=== PATIENT | male | born 1940 | race Caucasian/White ===

== ENCOUNTER 2018-05-07 12:47 | Inpatient (IN) | payer MEDICARE ==
[~2018-05-07] VITALS: Ht 175.3 cm; Wt 92.5 kg
[2018-05-07 13:34] LABS: BASOPHILS # (AUTO) 0.05 x10^3/uL (0-0.1); BASOPHILS % (AUTO) 1 % (0-1); EOSINOPHILS # (AUTO) 0.13 x10^3/uL (0-0.4); EOSINOPHILS % (AUTO) 2 % (1-7); LYMPHOCYTES # (AUTO) 2.17 x10^3/uL (1-3.4); LYMPHOCYTES % (AUTO) 26 % (22-44); MD NO; MEAN CORPUSCULAR HGB CONC 34.4 g/dL (33.2-36.2); MEAN CORPUSCULAR VOLUME 96.1 fL (81-97); MEAN PLATELET VOLUME 8.8 fL (7.4-10.4); MONOCYTES # (AUTO) 0.58 x10^3/uL (0.2-0.8); MONOCYTES % (AUTO) 7 % (2-9); NEUTROPHILS # (AUTO) 5.57 x10^3/uL (1.8-6.8); NEUTROPHILS % (AUTO) 66 % (42-75); PLATELET COUNT 172 x10^3/uL (130-400); RED BLOOD COUNT 5.13 x10^6/uL (4.38-5.82); RED CELL DISTRIBUTION WIDTH 14.9 % (9.4-14.8)
[2018-05-07 13:38] LABS: ALBUMIN 3.3 g/dL (3.4-5.0); ANION GAP 8 mmol/L (5-15); CALCIUM 8.8 mg/dL (8.5-10.1); CHLORIDE 110 mmol/L (98-107); CREATININE 1.15 mg/dL (0.7-1.3)
[2018-05-07] MEDS ORDERED: GADOBUTROL 10 MMOL/10 ML VIAL ONE (15:43)
[2018-05-07] MEDS ORDERED: PIPERACILLIN/TAZO/PMX 3.375GM 50 ML IV ONE (17:30)
[2018-05-07] MEDS ORDERED: LEVO100T5 PO (17:45)
[2018-05-07] MEDS ORDERED: VALS1TAB26 PO (17:45)
[2018-05-07] MEDS ORDERED: ALLO300T PO (17:45)
[2018-05-07] MEDS ORDERED: SOTA120T7 PO (17:45)
[2018-05-07] MEDS ORDERED: RIVA20TA PO (17:45)
[2018-05-07] MEDS ORDERED: LOVA20TA2 PO (17:45)
[2018-05-07] MEDS ORDERED: AMLO2.5T PO (17:45)
[2018-05-07] MEDS ORDERED: SODIUM CHLORIDE FLUSH 10ML SYR IVF PRN (18:00)
[2018-05-07] MEDS ORDERED: PIPERACILLIN/TAZO/PMX 3.375GM 50 ML ONE (18:07)
[2018-05-07] MEDS ORDERED: BISACODYL 10 MG SUPP PR PRN (19:00)
[2018-05-07] MEDS ORDERED: POLYETHYLENE GLYCOL 17 GM PACKET PO PRN (19:00)
[2018-05-07] MEDS ORDERED: ACETAMINOPHEN 325 MG TABLET PO PRN (19:00)
[2018-05-07] MEDS ORDERED: ONDANSETRON 2MG/ML, 2ML IVPush PRN (19:00)
[2018-05-07] MEDS ORDERED: KETOROLAC 30 MG/1 ML IVPush PRN (19:00)
[2018-05-07] MEDS ORDERED: VANCOMYCIN PER PHARMACY MC PRN (19:00)
[2018-05-07 20:16] VITALS: BP 138/75
[2018-05-07] MEDS ORDERED: PHARMACOKINETIC CONSULTATION MC ONE (20:30)
[2018-05-07] MEDS ORDERED: PHARMACOKINETIC MONITORING MC PRN (20:30)
[2018-05-07] MEDS: LOVASTATIN 20 MG TABLET PO SCH (21:24)
[2018-05-07] MEDS: SODIUM CHLORIDE FLUSH 10ML SYR IVF SCH (21:24)
[2018-05-07] MEDS: VANCOMYCIN 1,800 MG in SODIUM CHLORIDE 0.9% 250 ML IV SCH (21:25)
[2018-05-08] MEDS: AMPICILLIN/SULBACTAM 3 GM in SODIUM CHLORIDE 0.9% 100 ML IV SCH ×4 (00:12→18:05)
[2018-05-08 01:50] VITALS: BP 144/71
[2018-05-08 05:50] LABS: BASOPHILS # (AUTO) 0.02 x10^3/uL (0-0.1); BASOPHILS % (AUTO) 0 % (0-1); EOSINOPHILS # (AUTO) 0.13 x10^3/uL (0-0.4); EOSINOPHILS % (AUTO) 2 % (1-7); LYMPHOCYTES # (AUTO) 2.13 x10^3/uL (1-3.4); LYMPHOCYTES % (AUTO) 23 % (22-44); MD NO; MEAN CORPUSCULAR HEMOGLOBIN 32.8 pg (27.5-34.5); MEAN CORPUSCULAR HGB CONC 34.2 g/dL (33.2-36.2); MEAN CORPUSCULAR VOLUME 95.9 fL (81-97); MEAN PLATELET VOLUME 8.1 fL (7.4-10.4); MONOCYTES # (AUTO) 0.69 x10^3/uL (0.2-0.8); MONOCYTES % (AUTO) 8 % (2-9); NEUTROPHILS # (AUTO) 6.22 x10^3/uL (1.8-6.8); NEUTROPHILS % (AUTO) 68 % (42-75); PLATELET COUNT 159 x10^3/uL (130-400); RED BLOOD COUNT 5.05 x10^6/uL (4.38-5.82); RED CELL DISTRIBUTION WIDTH 14.7 % (9.4-14.8)
[2018-05-08] MEDS: LEVOTHYROXINE 100 MCG TABLET PO SCH (06:00)
[2018-05-08 06:01] LABS: ALANINE AMINOTRANSFERASE 24 U/L (12-78); ALBUMIN 3.1 g/dL (3.4-5.0); ANION GAP 6 mmol/L (5-15); CALCIUM 8.4 mg/dL (8.5-10.1); CHLORIDE 111 mmol/L (98-107)
[2018-05-08 06:04] LABS: ALKALINE PHOSPHATASE 55 U/L (45-117); CREATININE 1.03 mg/dL (0.7-1.3); TOTAL PROTEIN 6.2 g/dL (6.4-8.2)
[2018-05-08 07:05] VITALS: BP 147/74
[2018-05-08] MEDS: RIVAROXABAN 20 MG TABLET PO SCH (08:58)
[2018-05-08] MEDS: SENNA/DOCUSATE TABLET PO SCH (08:58)
[2018-05-08] MEDS: AMLODIPINE 2.5 MG TABLET PO SCH (08:58)
[2018-05-08] MEDS: HYDROCHLOROTHIAZIDE 25 MG TABLET PO SCH (08:58)
[2018-05-08] MEDS: ALLOPURINOL 300 MG TABLET PO SCH (08:59)
[2018-05-08] MEDS: SODIUM CHLORIDE FLUSH 10ML SYR IVF SCH ×2 (09:00→21:30)
[2018-05-08] MEDS ORDERED: SOTALOL 120MG TABLET PO SCH (09:00)
[2018-05-08] MEDS ORDERED: VALSARTAN 160 MG TABLET PO SCH (09:00)
[2018-05-08 15:05] VITALS: BP 103/77
[2018-05-08 20:00] VITALS: BP 158/80
[2018-05-08] MEDS: VANCOMYCIN 1,800 MG in SODIUM CHLORIDE 0.9% 250 ML IV SCH (21:30)
[2018-05-08] MEDS: SOTALOL 120MG TABLET PO SCH (21:31)
[2018-05-08] MEDS: LOVASTATIN 20 MG TABLET PO SCH (21:31)
[2018-05-08] MEDS: VALSARTAN 160 MG TABLET PO SCH (21:31)
[2018-05-09] MEDS: AMPICILLIN/SULBACTAM 3 GM in SODIUM CHLORIDE 0.9% 100 ML IV SCH ×4 (00:08→18:06)
[2018-05-09 02:00] VITALS: BP 155/80
[2018-05-09 05:35] LABS: BASOPHILS # (AUTO) 0.03 x10^3/uL (0-0.1); BASOPHILS % (AUTO) 1 % (0-1); EOSINOPHILS # (AUTO) 0.16 x10^3/uL (0-0.4); EOSINOPHILS % (AUTO) 2 % (1-7); LYMPHOCYTES # (AUTO) 2.35 x10^3/uL (1-3.4); LYMPHOCYTES % (AUTO) 31 % (22-44); MD NO; MEAN CORPUSCULAR HEMOGLOBIN 32.6 pg (27.5-34.5); MEAN CORPUSCULAR HGB CONC 33.6 g/dL (33.2-36.2); MEAN PLATELET VOLUME 8.3 fL (7.4-10.4); MONOCYTES # (AUTO) 0.63 x10^3/uL (0.2-0.8); MONOCYTES % (AUTO) 8 % (2-9); NEUTROPHILS # (AUTO) 4.32 x10^3/uL (1.8-6.8); NEUTROPHILS % (AUTO) 58 % (42-75); PLATELET COUNT 174 x10^3/uL (130-400); RED BLOOD COUNT 5.37 x10^6/uL (4.38-5.82); RED CELL DISTRIBUTION WIDTH 14.8 % (9.4-14.8)
[2018-05-09 05:38] LABS: ANION GAP 5 mmol/L (5-15); CALCIUM 8.6 mg/dL (8.5-10.1); CHLORIDE 109 mmol/L (98-107)
[2018-05-09 05:39] LABS: CREATININE 1.06 mg/dL (0.7-1.3)
[2018-05-09] MEDS: LEVOTHYROXINE 100 MCG TABLET PO SCH (06:14)
[2018-05-09 07:38] VITALS: BP 156/76
[2018-05-09] MEDS: RIVAROXABAN 20 MG TABLET PO SCH (09:00)
[2018-05-09] MEDS: SODIUM CHLORIDE FLUSH 10ML SYR IVF SCH ×2 (09:00→20:44)
[2018-05-09] MEDS: HYDROCHLOROTHIAZIDE 25 MG TABLET PO SCH (09:00)
[2018-05-09] MEDS: SOTALOL 120MG TABLET PO SCH ×2 (09:00→20:43)
[2018-05-09] MEDS: AMLODIPINE 2.5 MG TABLET PO SCH (09:00)
[2018-05-09] MEDS: SENNA/DOCUSATE TABLET PO SCH (09:00)
[2018-05-09] MEDS: ALLOPURINOL 300 MG TABLET PO SCH (09:00)
[2018-05-09 13:35] VITALS: BP 144/67
[2018-05-09 18:42] VITALS: BP 130/74
[2018-05-09] MEDS: LOVASTATIN 20 MG TABLET PO SCH (20:43)
[2018-05-09] MEDS: VALSARTAN 160 MG TABLET PO SCH (20:44)
[2018-05-09] MEDS: VANCOMYCIN 1,800 MG in SODIUM CHLORIDE 0.9% 250 ML IV SCH (20:46)
[2018-05-10] MEDS: AMPICILLIN/SULBACTAM 3 GM in SODIUM CHLORIDE 0.9% 100 ML IV SCH ×2 (00:05→05:53)
[2018-05-10 01:01] VITALS: BP 119/72
[2018-05-10] MEDS: LEVOTHYROXINE 100 MCG TABLET PO SCH (05:53)
[2018-05-10 07:29] VITALS: BP 155/81
[2018-05-10] MEDS ORDERED: AMOX1TAB64 PO (08:46)
[2018-05-10] MEDS ORDERED: DOXY100T PO (08:46)
[2018-05-10] MEDS: SODIUM CHLORIDE FLUSH 10ML SYR IVF SCH (09:00)
[2018-05-10] MEDS: SENNA/DOCUSATE TABLET PO SCH (09:00)
[2018-05-10] MEDS: AMLODIPINE 2.5 MG TABLET PO SCH (09:15)
[2018-05-10] MEDS: SOTALOL 120MG TABLET PO SCH (09:15)
[2018-05-10] MEDS: RIVAROXABAN 20 MG TABLET PO SCH (09:15)
[2018-05-10] MEDS: HYDROCHLOROTHIAZIDE 25 MG TABLET PO SCH (09:15)
[2018-05-10] MEDS: ALLOPURINOL 300 MG TABLET PO SCH (09:15)
[2018-05-10 10:12] VITALS: BP 147/77
== END 2018-05-10 10:15 | disposition home or self-care (01) | DRG 603 ==
LOC: EDIP 17:53 → ED 18:52 → 4NOR 19:15
PROVIDERS: ADMIT Internal Medicine; ATTEND Internal Medicine
DX: L03.116 Cellulitis of left lower limb (principal); E44.1 Mild protein-calorie malnutrition; E78.5 Hyperlipidemia, unspecified; E03.9 Hypothyroidism, unspecified; G47.33 Obstructive sleep apnea (adult) (pediatric); I11.9 Hypertensive heart disease without heart failure; I48.2 Chronic atrial fibrillation; M10.9 Gout, unspecified; Z80.0 Family history of malignant neoplasm of digestive organs; Z85.828 Personal history of other malignant neoplasm of skin; Z68.30 Body mass index [BMI] 30.0-30.9, adult; Z79.01 Long term (current) use of anticoagulants; Z90.89 Acquired absence of other organs; Z82.3 Family history of stroke
CPT/HCPCS: 36415; 80048; 80053; 82040; 85025; 96365; A9585; J0295; J2543; J3370; J7050